=== PATIENT | female | born 1985 | race American Indian/Alaskan Native ===

== ENCOUNTER 2019-01-27 11:21 | Emergency (ER) | payer SELFPAY ==
[2019-01-27 11:30] VITALS: BP 134/84
--- NOTE | 2019-01-27 11:37 | Event Note ---
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 Further treatment and workup at subsequent clinical providers discretion. Patient/guardian urged not to elope from the ED as their condition may be serious if not clinically assessed and managed.
[2019-01-27] MEDS ORDERED: SODIUM CHLORIDE 0.9% 1000 ML 1,000 ML IV ONE (12:48)
[2019-01-27] MEDS ORDERED: diphenhydrAMINE 50 MG/ML VIAL IV STA (12:48)
[2019-01-27] MEDS ORDERED: METOCLOPRAMIDE 10 MG/2 ML INJ IV STA (12:48)
[2019-01-27] MEDS ORDERED: PYRIDOXINE 50 MG TAB PO ONE (13:00)
[2019-01-27 13:15] LABS: Basophils # (Auto) 0.1 K/mm3 (0.0-0.1); Basophils % (Auto) 0.7 % (0.0-1.8); Eosinophils # (Auto) 0.1 K/mm3 (0.0-0.4); Eosinophils % (Auto) 1.5 % (0.0-4.3); Hematocrit 36.4 % (30.3-42.9); Hemoglobin 11.7 gm/dl (10.1-14.3); Lymphocytes # (Auto) 2.5 K/mm3 (1.2-5.4); Lymphocytes % (Auto) 31.3 % (13.4-35.0); Mean Corpuscular HGB Conc 32 % (30-34); Mean Corpuscular Volume 72 fl (79-97); Monocytes # (Auto) 0.7 K/mm3 (0.0-0.8); Monocytes % (Auto) 8.4 % (0.0-7.3); Platelet Count 312 K/mm3 (140-440); Red Blood Count 5.08 M/mm3 (3.65-5.03); Red Cell Distribution Width 14.8 % (13.2-15.2)
[2019-01-27 13:40] LABS: Alanine Aminotransferase 79 units/L (7-56); Albumin 4.5 g/dL (3.9-5); BUN/Creatinine Ratio 12; Blood Urea Nitrogen 7 mg/dL (7-17); Hemolysis Index 3
[2019-01-27 14:16] LABS: Calcium 12.4 mg/dL (8.4-10.2)
--- NOTE | 2019-01-27 16:00 | Emergency Department Report ---
ED N/V/D HPI - General Chief complaint: Nausea/Vomiting/Diarrhea Stated complaint: VOMITING BLOOD (PREG) Time Seen by Provider: 01/27/19 11:36 Source: patient Mode of arrival: Ambulatory Limitations: No Limitations - History of Present Illness Initial comments: 33-year-old female presents to emergency department complaining of recurrent vomiting last 2 months since finding out for . She reports no fevers, chills, sweats no chest pain or palpitations no vaginal bleeding or vaginal discharge no dysuria. She reports having 3 episodes of vomiting with some streaks of blood but denies any gross hematemesis MD complaint: nausea, vomiting, diarrhea -: Gradual Associated Abdominal Pain: No Radiation: none Severity: mild Consistency: constant Improves with: none Worsens with: none Associated Symptoms: denies: myalgias, loss of appetite, malaise, nausea/vomiting - Related Data Previous Rx's Medication Instructions Recorded Last Taken Type Doxylamine Succinate/Vit B6 1 each PO Q6HR PRN #20 tablet. 01/27/19 Unknown Rx [Carlos Mckeon 10-10 mg Tablet] Metoclopramide [Reglan] 10 mg PO TID #20 tab 01/27/19 Unknown Rx Pyridoxine [Vitamin B-6 50MG TAB] 50 mg PO QDAY #30 tablet 01/27/19 Unknown Rx diphenhydrAMINE [Benadryl CAP] 50 mg PO Q8HR PRN #20 capsule 01/27/19 Unknown Rx Allergies Allergy/AdvReac Type Severity Reaction Status Date / Time No Known Allergies Allergy Unverified 01/27/19 11:26 ED Review of Systems ROS: Stated complaint: VOMITING BLOOD (PREG) Other details as noted in HPI Comment: All other systems reviewed and negative ED Past Medical Hx - Past Medical History Previous Medical History?: No - Surgical History Past Surgical History?: No - Social History Smoking Status: Never Smoker Substance Use Type: None - Medications Home Medications: Home Medications Medication Instructions Recorded Confirmed Last Taken Type Doxylamine Succinate/Vit B6 1 each PO Q6HR PRN #20 tablet. 01/27/19 Unknown Rx [Carlos Mckeon 10-10 mg Tablet] Metoclopramide [Reglan] 10 mg PO TID #20 tab 01/27/19 Unknown Rx Pyridoxine [Vitamin B-6 50MG TAB] 50 mg PO QDAY #30 tablet 01/27/19 Unknown Rx diphenhydrAMINE [Benadryl CAP] 50 mg PO Q8HR PRN #20 capsule 01/27/19 Unknown Rx ED Physical Exam - General Limitations: No Limitations General appearance: alert, in no apparent distress - Head Head exam: Present: atraumatic, normocephalic - Eye Eye exam: Present: normal appearance, PERRL, EOMI Pupils: Present: normal accommodation - ENT ENT exam: Present: normal exam, normal orophraynx, mucous membranes moist, TM's normal bilaterally - Neck Neck exam: Present: normal inspection - Respiratory Respiratory exam: Present: normal lung sounds bilaterally. Absent: respiratory distress, wheezes, rales, chest wall tenderness, accessory muscle use - Cardiovascular Cardiovascular Exam: Present: regular rate, normal rhythm. Absent: systolic murmur, diastolic murmur, rubs, gallop - GI/Abdominal GI/Abdominal exam: Present: soft, normal bowel sounds. Absent: distended, tenderness, guarding, hyperactive bowel sounds, hypoactive bowel sounds, organomegaly, mass - Extremities Exam Extremities exam: Present: normal inspection, normal capillary refill - Back Exam Back exam: Present: normal inspection, full ROM. Absent: CVA tenderness (R), CVA tenderness (L) - Neurological Exam Neurological exam: Present: alert, oriented X3, CN II-XII intact, normal gait - Psychiatric Psychiatric exam: Present: normal affect, normal mood - Skin Skin exam: Present: warm, dry, intact, normal color. Absent: rash ED Course Vital Signs 01/27/19 11:27 Temperature 98.9 F Pulse Rate 112 H Respiratory 20 Rate Blood Pressure 134/84 O2 Sat by Pulse 100 Oximetry ED Medical Decision Making - Lab Data Result diagrams: 01/27/19 12:58 01/27/19 12:58 - Medical Decision Making The cause of the patients symptoms is seems to be related to as symptoms did initiate after becoming about a month and a half ago, but the patient is overall well appearing and is suspected to have a transient course of illness. She has just recently relocated to [place] the last 2-3 months from [place] Given History and Exam there does not appear to be an emergent cause of the symptoms such as small bowel obstruction, coronary syndrome, bowel ischemia, DKA, pancreatitis, appendicitis, other acute abdomen or other emergent problem. Reassessment: After treatment, the patient is feeling much better, tolerating PO fluids, and shows no signs of dehydration. Disposition: Discharge home with prompt [facility] follow up in the next 48 hours. Also advised to follow-up for her elevated calcium Strict return precautions discussed. Critical care attestation.: If time is entered above; I have spent that time in minutes in the direct care of this critically ill patient, excluding procedure time. ED Disposition Clinical Impression: Hyperemesis, Hypercalcemia Disposition: TO HOME OR SELFCARE Is pt being admited?: No Does the pt Need Aspirin: No Condition: Stable Instructions: Hypercalcemia (ED), Hyperemesis Gravidarum (ED) Prescriptions: diphenhydrAMINE [Benadryl CAP] 50 mg PO Q8HR PRN #20 capsule PRN Reason: Nausea And Vomiting Doxylamine Succinate/Vit B6 [Diclegis Dr 10-10 mg Tablet] 1 each PO Q6HR PRN #20 tablet. PRN Reason: Nausea And Vomiting Metoclopramide [Reglan] 10 mg PO TID #20 tab Pyridoxine [Vitamin B-6 50MG TAB] 50 mg PO QDAY #30 tablet Referrals: [facility] [Provider Group] - 3-5 Days [facility]Provider [facility]] - 3-5 Days DARNELL LEIGH MD [Staff Physician] - 3-5 Days (Please follow his doctor for your elevated calcium levels)
== END 2019-01-27 16:24 | disposition home or self-care (01) ==
LOC: ED 11:21
DX: O21.0 Mild hyperemesis gravidarum (principal); E83.52 Hypercalcemia; Z3A.08 8 weeks gestation of pregnancy; Z79.899 Other long term (current) drug therapy
CPT/HCPCS: 36415; 80053; 84702; 85025; 96361; 96374; 96375; 99283; J1200; J2765; J7030

== ENCOUNTER 2019-05-19 02:42 | Outpatient (CLI) | payer OTHER ==
[2019-05-19] MEDS ORDERED: LACTATED RINGERS 1,000 ML ONE (04:33)
[2019-05-19 05:07] VITALS: BP 130/71
--- NOTE | 2019-05-19 05:20 | Ultrasound Report ---
US OB LIMITED INDICATION / CLINICAL INFORMATION: well-being. Rule out abruption. COMPARISON: None available. FINDINGS: presentation is breech. The heart rate is 163 bpm. The placenta is located anteriorly, is grade 0 and is free of the os. There is no evidence of abruption. Amniotic fluid volume is normal wi th an SUKHDEV of 20.4 cm. IMPRESSION: No evidence of abruption. Signer Name: Marcos Chang MD Signed: 05/19/2019 5:15 AM Workstation Name: [id number]
[2019-05-19 05:23] LABS: Basophils % (Auto) 0.3 % (0.0-1.8); Eosinophils # (Auto) 0.1 K/mm3 (0.0-0.4); Eosinophils % (Auto) 0.8 % (0.0-4.3); Hematocrit 29.2 % (30.3-42.9); Hemoglobin 9.3 gm/dl (10.1-14.3); Lymphocytes # (Auto) 2.7 K/mm3 (1.2-5.4); Lymphocytes % (Auto) 18.3 % (13.4-35.0); Mean Corpuscular HGB Conc 32 % (30-34); Mean Corpuscular Volume 75 fl (79-97); Monocytes # (Auto) 0.9 K/mm3 (0.0-0.8); Monocytes % (Auto) 5.8 % (0.0-7.3); Platelet Count 259 K/mm3 (140-440); Red Blood Count 3.89 M/mm3 (3.65-5.03); Red Cell Distribution Width 16.8 % (13.2-15.2)
[2019-05-19 05:41] LABS: Alanine Aminotransferase 15 units/L (7-56); Albumin 3.9 g/dL (3.9-5); BUN/Creatinine Ratio 16; Blood Urea Nitrogen 8 mg/dL (7-17); Calcium 11.9 mg/dL (8.4-10.2); Hemolysis Index 24
[2019-05-19] MEDS ORDERED: LACTATED RINGERS 1,000 ML IV ONE (05:54)
[2019-05-19 06:25] LABS: Bilirubin,Urine NEG (Negative); Blood,Urine NEG (Negative); Color,Urine Straw (Yellow); Protein,Urine <15 mg/dL mg/dL (Negative); Urobilinogen,Urine < 2.0 mg/dL (<2.0)
[2019-05-19 06:44] LABS: Amphetamine Screen,Urine PRESUMPTIVE NEGATIVE; Benzodiazepines Screen,Urine PRESUMPTIVE NEGATIVE; Cannabinoid Screen,Urine PRESUMPTIVE NEGATIVE; Cocaine Screen,Urine PRESUMPTIVE NEGATIVE; Methadone Screen,Urine PRESUMPTIVE NEGATIVE; Opiate Screen,Urine PRESUMPTIVE NEGATIVE
[2019-05-19] MEDS ORDERED: LACTATED RINGERS 500 ML IV ONE (07:19)
== END 2019-05-19 06:48 | disposition home or self-care (01) ==
LOC: TRG 02:42
PROVIDERS: ATTEND Obstetrics & Gynecology
DX: O26.892 Other specified pregnancy related conditions, second trimester (principal); R25.2 Cramp and spasm; O32.1XX0 Maternal care for breech presentation, not applicable or unspecified; O47.02 False labor before 37 completed weeks of gestation, second trimester; Z3A.23 23 weeks gestation of pregnancy
CPT/HCPCS: 36415; 76815; 80053; 80307; 81001; 84436; 84443; 85025; 96360; J7120

== ENCOUNTER 2019-07-15 12:47 | Emergency (ER) | payer OTHER ==
[2019-07-15] MEDS ORDERED: ONDANSETRON 4 MG/2 ML INJ IV ONE (12:54)
[2019-07-15] MEDS ORDERED: D5W/0.9% NACL 1,000 ML IV SCH ×2 (13:00)
--- NOTE | 2019-07-15 13:07 | Emergency Department Report ---
ED N/V/D HPI - General Chief complaint: Nausea/Vomiting/Diarrhea Stated complaint: NAUSEA/VOMITING Time Seen by Provider: 07/15/19 12:53 Source: patient Mode of arrival: Ambulatory Limitations: No Limitations - History of Present Illness Initial comments: Patient is a 33-year-old female who is presenting with nausea vomiting. Patient states that she is 32 weeks has had vomiting every morning most of this . Patient also has had a mild cough most of his as well when she coughed often with her first . She denies any fevers or chills. Patient states that over the last 24 hours she has had some increased nausea vomitus unable to keep anything down. States she has no abdominal pain or contractions vaginal bleeding but she does have some right sided back pain. She denies shortness of breath at this time. - Related Data Previous Rx's Medication Instructions Recorded Last Taken Type Ondansetron [Zofran Odt] 4 mg PO Q8HR #10 tab.rapdis 07/15/19 Unknown Rx Allergies Allergy/AdvReac Type Severity Reaction Status Date / Time No Known Allergies Allergy Unverified 01/27/19 11:26 ED Review of Systems ROS: Stated complaint: NAUSEA/VOMITING Other details as noted in HPI Comment: All other systems reviewed and negative ED Past Medical Hx - Past Medical History Hx Hypertension: No Hx Diabetes: No Hx Deep Vein Thrombosis: No Hx Renal Disease: No Hx Sickle Cell Disease: No Hx Asthma: No Hx HIV: No - Surgical History Past Surgical History?: No - Social History Smoking Status: Never Smoker Substance Use Type: Alcohol - Medications Home Medications: Home Medications Medication Instructions Recorded Confirmed Last Taken Type Ondansetron [Zofran Odt] 4 mg PO Q8HR #10 tab.rapdis 07/15/19 Unknown Rx ED Physical Exam - General Limitations: No Limitations General appearance: alert, in no apparent distress - Head Head exam: Present: atraumatic, normocephalic - Eye Eye exam: Present: normal appearance. Absent: PERRL, EOMI - ENT ENT exam: Present: mucous membranes moist - Neck Neck exam: Present: normal inspection - Respiratory Respiratory exam: Present: normal lung sounds bilaterally. Absent: respiratory distress, wheezes, rales - Cardiovascular Cardiovascular Exam: Present: regular rate, normal rhythm. Absent: normal heart sounds, systolic murmur, diastolic murmur, rubs, gallop - GI/Abdominal GI/Abdominal exam: Present: soft, normal bowel sounds. Absent: distended, tenderness, guarding - Extremities Exam Extremities exam: Present: normal inspection - Back Exam Back exam: Present: normal inspection - Neurological Exam Neurological exam: Present: alert, oriented X3 - Psychiatric Psychiatric exam: Present: normal affect, normal mood - Skin Skin exam: Present: warm, dry, intact, normal color. Absent: rash ED Course Vital Signs 07/15/19 07/15/19 13:22 14:35 Temperature 99.0 F Pulse Rate 78 70 Respiratory 20 20 Rate Blood Pressure 112/76 119/76 [Left] O2 Sat by Pulse 99 100 Oximetry ED Medical Decision Making - Lab Data Result diagrams: 07/15/19 13:13 07/15/19 13:13 Labs 07/15/19 07/15/19 07/15/19 12:54 13:13 13:13 WBC 11.4 H RBC 4.42 Hgb 10.4 Hct 32.8 MCV 74 L MCH 24 L MCHC 32 RDW 15.3 H Plt Count 284 Lymph % (Auto) 18.6 [place] % (Auto) 8.4 H Eos % (Auto) 0.5 Baso % (Auto) 0.4 Lymph # 2.1 [place] # 1.0 H Eos # 0.1 Baso # 0.0 Seg Neutrophils % 72.1 H Seg Neutrophils # 8.2 H Sodium 136 L Potassium 4.5 Chloride 101.4 Carbon Dioxide 26 Anion Gap 13 BUN 11 Creatinine 0.6 L Estimated GFR > 60 BUN/Creatinine Ratio 18 Glucose 65 Calcium > 13.0 H* PTH Intact Urine Color Radha Urine Turbidity Cloudy Urine pH 8.0 H Ur Specific [place] 1.016 Urine Protein <15 mg/dl Urine Glucose (UA) Neg Urine Ketones Neg Urine Blood Sm Urine Nitrite Neg Urine Bilirubin Neg Urine Urobilinogen 4.0 Ur Leukocyte Esterase Neg Urine WBC (Auto) 9.0 H Urine RBC (Auto) 40.0 U Epithel Cells (Auto) 9.0 Urine Bacteria (Auto) 1+ Amorphous Crystals 1+ Urine Mucus Few 07/15/19 07/15/19 13:13 14:24 WBC RBC Hgb Hct MCV MCH MCHC RDW Plt Count Lymph % (Auto) [place] % (Auto) Eos % (Auto) Baso % (Auto) Lymph # [place] # Eos # Baso # Seg Neutrophils % Seg Neutrophils # Sodium Potassium Chloride Carbon Dioxide Anion Gap BUN Creatinine Estimated GFR BUN/Creatinine Ratio Glucose Calcium 11.4 H PTH Intact 106.6 H Urine Color Urine Turbidity Urine pH Ur Specific [place] Urine Protein Urine Glucose (UA) Urine Ketones Urine Blood Urine Nitrite Urine Bilirubin Urine Urobilinogen Ur Leukocyte Esterase Urine WBC (Auto) Urine RBC (Auto) U Epithel Cells (Auto) Urine Bacteria (Auto) Amorphous Crystals Urine Mucus - Medical Decision Making Patient is a 33-year-old F [place] female who is approximately 32 weeks who presented with nausea vomiting. Patient was noted to have elevated calcium level on arrival which was greater than 13. After IV fluids calcium level is decreasing. Patient was given 3 L normal saline 2 of which had D5 and to help with her nausea. Nausea is improved and she is tolerating p.o. with [facility] has been consulted and does know about the patient. Spoke with our hospitalist group who stated the patient did not warrant admiss ion. Patient is hypercalcemia seems to be likely due to hyperparathyroidism. And less likely malignancy patient given primary care follow-up. Critical care attestation.: If time is entered above; I have spent that time in minutes in the direct care of this critically ill patient, excluding procedure time. ED Disposition Clinical Impression: Hypercalcemia, Hyperparathyroidism, Nausea & vomiting Disposition: DC-01 TO HOME OR SELFCARE Is pt being admited?: No Does the pt Need Aspirin: No Condition: Stable Instructions: Hypercalcemia (ED), Morning Sickness (ED), Acute Nausea and Vomiting (ED) Referrals: DARNELL LEIGH MD [Staff Physician] - 3-5 Days (Please call for further management of your hyper parathyroidism and hypercalcemia. Your calcium levels have decreased after IV fluids to a safe range) Time of Disposition: 16:58
[2019-07-15 13:38] LABS: Amorphous Crystals,Urine 1+; Bacteria,Urine 1+ /HPF (Negative); Bilirubin,Urine NEG (Negative); Blood,Urine SM (Negative); Color,Urine Amber (Yellow); Mucus,Urine FEW /HPF; Protein,Urine <15 mg/dL mg/dL (Negative)
[2019-07-15 13:42] LABS: Basophils % (Auto) 0.4 % (0.0-1.8); Eosinophils # (Auto) 0.1 K/mm3 (0.0-0.4); Eosinophils % (Auto) 0.5 % (0.0-4.3); Hematocrit 32.8 % (30.3-42.9); Hemoglobin 10.4 gm/dl (10.1-14.3); Lymphocytes # (Auto) 2.1 K/mm3 (1.2-5.4); Lymphocytes % (Auto) 18.6 % (13.4-35.0); Mean Corpuscular HGB Conc 32 % (30-34); Mean Corpuscular Volume 74 fl (79-97); Monocytes % (Auto) 8.4 % (0.0-7.3); Platelet Count 284 K/mm3 (140-440); Red Blood Count 4.42 M/mm3 (3.65-5.03); Red Cell Distribution Width 15.3 % (13.2-15.2)
[2019-07-15 13:48] LABS: BUN/Creatinine Ratio 18; Blood Urea Nitrogen 11 mg/dL (7-17); Hemolysis Index 2
[2019-07-15 13:55] LABS: Calcium > 13.0 mg/dL (8.4-10.2)
[2019-07-15] MEDS ORDERED: FUROSEMIDE 20 MG/2 ML INJ IV ONE (15:28)
[2019-07-15] MEDS ORDERED: SODIUM CHLORIDE 0.9% 1000 ML 1,000 ML IV ONE (15:28)
[2019-07-15 17:22] VITALS: BP 122/72
== END 2019-07-15 17:23 | disposition home or self-care (01) ==
LOC: ED 12:47
DX: O21.8 Other vomiting complicating pregnancy (principal); O26.893 Other specified pregnancy related conditions, third trimester; E83.52 Hypercalcemia; E21.3 Hyperparathyroidism, unspecified; R05 Cough; Z79.899 Other long term (current) drug therapy; Z3A.32 32 weeks gestation of pregnancy
CPT/HCPCS: 36415; 80048; 81001; 82310; 83970; 85025; 87086; 96361; 96374; 96375; 99283; J1940; J2405; J7030; J7042